=== PATIENT | female | born 1945 | race Caucasian/White ===

== ENCOUNTER 2024-10-01 13:02 | Emergency (ER) | payer MEDICARE, SELFPAY ==
[2024-10-01 13:04] VITALS: BP 158/75
[2024-10-01 13:18] VITALS: BMI 39.0
[2024-10-01 13:26] VITALS: BP 155/79
[2024-10-01 13:43] LABS: % Basophils 0.9 % (0-2); % Eosinophils 4.4 % (0-6); % Immature Granulocytes 0.3 % (0-0.5); % Lymphocytes 13.4 % (20.5-51.1); % Monocytes 5.9 % (1.7-9.3); % Neutrophils 75.1 % (42.2-75.2); Absolute Basophils 0.1 10^3/uL (0-0.2); Absolute Eosinophils 0.4 10^3/uL (0-0.7); Absolute Lymphocytes 1.2 10^3/uL (1.2-3.4); Absolute Monocytes 0.5 10^3/uL (0.1-0.6); Absolute Neutrophils 6.8 10^3/uL (1.4-6.5); Hematocrit 39.1 % (37.0-47.0); Hemoglobin 12.9 g/dL (12.0-16.0); Mean Corpuscular Hgb 31.9 pg (27.0-31.0); Mean Corpuscular Volume 96.8 fL (81.0-99.0); Mean Platelet Volume 9.2 fL (7.4-10.4); Nucleated Red Blood Cells % 0 %; Platelet Count 206 10^3/uL (130-400); Red Blood Cell Count 4.04 10^6/uL (4.20-5.40); Red Cell Dist. Width 11.8 % (11.5-14.5); White Blood Cell Count 9.1 10^3/uL (4.8-10.8)
--- NOTE | 2024-10-01 13:46 | ED.GENMED ---
History of Present Illness
General
Chief Complaint: Fainting/Passed Out
Source: patient
Exam Limitations: none
Time Seen by Provider: 10/01/24 13:23
History of Present Illness
History of Present Illness:
79-year-old female presents with family after unresponsive episode at . The patient had coffee this morning and nothing to eat was sitting and the home started to feel hot and had discomfort in her right hip. She has known arthritis
in her hip and is due for replacement. She felt like she was going to get lightheaded and passed out in her chair show she stood up to try to walk outside and she had worsening symptoms. Surrounding people sat her down and while sitting down she
became unresponsive for couple minutes. There is no preceding chest pain. She was very pale during this episode. When she woke up she vomited. She has similar episode that happened when her son was in the emergency room. No current chest pain
but does note nausea. No recent travel or surgery. No leg swelling or calf pain. No other complaints at this time
Phy Exam
Physical Exam
Physical Exam:
General: Well-appearing female no acute respiratory distress
HEENT: Normocephalic atraumatic
Heart: Regular rate and rhythm
Lungs: Clear no wheeze
Abdomen soft nontender nondistended no guarding or rebound
Extremities: No cyanosis or edema
Skin is warm no rash or lesion
Course
Orders/Labs/Results
Orders:
Orders
10/01/24 13:03
EKG [Electrocardiogram (*1)] Urgent
Reason for Study: Syncope
EKG- Treatment ONCE
10/01/24 13:28
Complete Blood Count/With Diff Urgent
10/01/24 13:29
Troponin I Urgent
10/01/24 13:41
0.9% Sodium Chloride 1000 ml [Nss] 1,000 ml IV BOLUS
10/01/24 14:12
Comprehensive Metabolic Panel Urgent
10/01/24 14:41
PTT Routine
Prothrombin Time Routine
Abnormal Lab Results
10/01/24 10/01/24
13:28 14:12
RBC 4.04 L 10^6/uL
(4.20-5.40)
MCH 31.9 H pg
(27.0-31.0)
Absolute Neuts (auto) 6.8 H 10^3/uL
(1.4-6.5)
Lymphocytes % 13.4 L %
(20.5-51.1)
BUN 22 H mg/dl
(7-17)
10/01/24 13:28
10/01/24 14:12
Vital Signs
Initial and Last Documented VS:
Initial Vital Signs
Temp Pulse Resp BP Pulse Ox
97.9 F 68 18 158/75 100
10/01/24 13:04 10/01/24 13:04 10/01/24 13:04 10/01/24 13:04 10/01/24 13:04
Last Documented Vital Signs
Temp Pulse Resp BP Pulse Ox
97.9 F 75 14 131/49 100
10/01/24 13:04 10/01/24 14:30 10/01/24 14:30 10/01/24 14:00 10/01/24 14:30
MDM/Problems Addressed
Differential Diagnosis Includes:
Syncope. Question arrhythmia versus vasovagal event versus electrolyte abnormality versus anemia versus orthostasis
Initial EKG shows sinus rhythm with PACs. Rhythm however on monitor looks like sinus
Will give fluids check labs ordered Zofran
*Critical Care Note
Total Time (30-74mins, 75-104mins- exclusive of procedures): Not Applicable
Update Note
Update Note:
Patient reevaluated. She is feeling much better. She ate a lunch. No further nausea lightheadedness or weakness. I do suspect vasovagal episode. I believe patient is stable for discharge family in agreement. Have patient follow-up with family
doctor.
ED Attending Note
-
Portions of this chart may have been created with voice recognition software.� Occasional wrong word or��sound alike� substitutions may have occurred due to the inherent limitations of voice recognition software.
Discharge Plan
Departure
Patient Disposition: Home (Routine Discharge)
Date of Disposition: 10/01/24
Time of Disposition: 15:07
Patient with high blood pressure during this ER visit?: No
Discharge Problem:
Syncope
Instructions: Syncope (Fainting) (DC)
Referrals:
Marcie Kovacs MD [Family Provider] -
Activity Restrictions/Additional Instructions:
Rest. Stay hydrated. Return here for worsening symptoms otherwise follow-up with your doctor
Interventions
Interventions:
*Risk Screen - Suicide Last Done: 10/01/24 13:04
*General Assessment Last Done: 10/01/24 13:04
*Neglect/Abuse Screening Last Done: 10/01/24 13:18
*ED COVID-19 Vaccine History Last Done: 10/01/24 13:04
ED- Cardiac Assessment Last Done: 10/01/24 13:18
ED- Neurological Assessment Last Done: 10/01/24 13:18
Discharge Date and Time
Print Language: BULGARIAN
[2024-10-01] MEDS: NSS 1000 IV (13:49)
[2024-10-01 14:00] VITALS: BP 131/49
[2024-10-01 14:05] LABS: Troponin I < 0.012 ng/ml
[2024-10-01 14:49] LABS: ALT (SGPT) 15 U/L (0-35); AST (SGOT) 28 U/L (14-36); Albumin 4.1 g/dl (3.5-5.0); Alkaline Phosphatase 97 U/L (38-126); Blood Urea Nitrogen 22 mg/dl (7-17); Calcium 9.4 mg/dl (8.4-10.2); Carbon Dioxide 26 mmol/L (22-30); Chloride 103 mmol/L (98-107); Estimated Creatinine Clearance 62 ml/min; Glucose 99 mg/dl (70-99); Potassium 4.6 mmol/L (3.5-5.1); Sodium 136 mmol/L (135-145); Total Bilirubin 0.9 mg/dl (0.2-1.3); Total Protein 6.7 g/dl (6.3-8.2); eGFR > 60.00
== END 2024-10-01 15:20 | disposition home or self-care (01) ==
LOC: EMR 13:02
PROVIDERS: Physician Assistant; EMERGENCY PHYSICIAN Emergency Medicine; FAMILY PHYSICIAN Internal Medicine
DX: R55 Syncope and collapse (principal); I49.1 Atrial premature depolarization
CPT/HCPCS: 99284; 96360; 80053; 84484; 85025; 93005